=== PATIENT | female | born 1980 | race Caucasian/White ===

== ENCOUNTER 2018-03-07 06:42 | Day surgery (SDC) | END 2018-03-07 17:35 | disposition home or self-care (01) ==

== ENCOUNTER 2018-11-12 08:47 | Day surgery (SDC) | payer OTHER ==
[2018-11-11 09:50] VITALS: Ht 157.5 cm; Wt 56.9 kg
[~2018-11-12] VITALS: Ht 157.5 cm; Wt 56.9 kg
[2018-11-12] VITALS (19 sets, daily range): BP systolic 100–168; BP diastolic 56–98; PULSE 77–112; RESP 16–23
[~2018-11-12 08:47] MED LIST: OMEPRAZOLE PO
--- NOTE | 2018-11-12 12:41 | HPN ---
Date/Time of Note Date/Time of Note DATE: 11/12/18 TIME: 12:41 Interval H&P Admission Note Pt. seen H&P reviewed: No system changes KALI CHAVEZ M.D. Nov 12, 2018 12:41
--- NOTE | 2018-11-12 12:44 | PREAC ---
Date/Time of Note Date/Time of Note DATE: 11/12/18 TIME: 12:43 Anesthesia Eval and Record Evaluation Time Pre-Procedure Interview DATE: 11/12/18 TIME: 12:43 Age 38 Sex female NPO: 8 hrs Preoperative diagnosis nasal obstruction Planned procedure septoplasty and turbinate reduction Past Medical History Past Medical History: None Surgery & Anesthesia Issues No known issue Meds Anticoagulation: No Beta Terrance within 24 hr: No Reason Beta Terrance not given: Pt. not on B-Terrance Discontinued Reported Medications [Omeprazole] No Conflict Check, PO 03/07/18 Meds reviewed: Yes Allergies Coded Allergies: No Known Allergy (Unverified , 03/07/18) Allergies Reviewed: Yes Labs/Studies Labs Reviewed: Reviewed by anesthesiologist test: Negative Pre-procedure Exam Last vitals Vital Signs Date Temp Pulse Resp B/P (MAP) Pulse Ox O2 O2 Flow FiO2 Time Delivery Rate 11/12/18 98.9 77 16 137/88 96 Room Air 09:34 (104) Airway: Adequate mouth opening, Adequate thyromental dist Mallampati: Mallampati II Teeth: Normal Lung: Normal Heart: Normal ASA Physical Status ASA physical status: 1 Emergency: None Planned Anesthetic General/MAC: ETT Pre-operative Attestations Prior to commencing anesthesia and surgery, the patient was re-evaluated, there was verification of: *The patient's identity *The results of appropriate recent lab work and preoperative vital signs *The above evaluation not changing prior to induction *Anesthetic plan, risk benefits, alternative and complications discussed with patient/family; questions answered; patient/family understands, accepts and wishes to proceed. BONNY MOSHER Nov 12, 2018 12:44
[2018-11-12] MEDS ORDERED: FENTAnyl 50 MCG/ML VIAL ONE (12:56)
[2018-11-12] MEDS ORDERED: DIPHENHYDRAMINE 50 MG INJ IV PRN (13:00)
[2018-11-12] MEDS ORDERED: MEPERIDINE 25 MG INJ IV PRN (13:00)
[2018-11-12] MEDS ORDERED: METOCLOPRAMIDE 10 MG INJ IV PRN (13:00)
[2018-11-12] MEDS ORDERED: ALBUTEROL 0.083% (NEB) 2.5 MG/3 ML AMP HHN PRN (13:00)
[2018-11-12] MEDS ORDERED: HYDROmorphONE 1 MG/5 ML IV SYRINGE IV PRN ×3 (13:00)
[2018-11-12] MEDS ORDERED: FENTAnyl 50 MCG/ML VIAL IV PRN ×3 (13:00)
[2018-11-12] MEDS ORDERED: ONDANSETRON 4 MG INJ IV PRN (13:00)
[2018-11-12] MEDS ORDERED: LIDOCAINE 1%/EPI (1:100,000) (MDV) 20 ML ONE (13:04)
[2018-11-12] MEDS ORDERED: COCAINE 4% 4 ML TOP ONE (13:04)
[2018-11-12] MEDS ORDERED: ROCURONIUM 50 MG INJ ONE (13:38)
[2018-11-12] MEDS ORDERED: PROPOFOL 20 ML ONE (13:38)
[2018-11-12] MEDS ORDERED: CEFAZOLIN 1 GM INJ ONE (13:38)
[2018-11-12] MEDS ORDERED: LIDOCAINE 100 MG SYRINGE ONE (13:38)
[2018-11-12] MEDS ORDERED: SUCCINYLCHOLINE CHLORIDE 100 MG/5 ML SYG IV ONE (13:38)
[2018-11-12] MEDS ORDERED: SUGAMMADEX SODIUM 200 MG/2 ML VIAL IV ONE (13:39)
[2018-11-12] MEDS ORDERED: NEOMYC/POLYMYX/BACIT 30 GM OINT ONE (13:43)
--- NOTE | 2018-11-12 14:02 | OPR ---
Date/Time of Note Date/Time of Note DATE: 11/12/18 TIME: 13:58 Operative Report Procedure Date: Nov 12, 2018 Preoperative Diagnosis 1. SEPTAL DEVIATION. 2. BILATERAL NASAL TURBINATE TISSUE HYPERTROPHY. 3. CHRONIC NASAL OBSTRUCTION. Postoperative Diagnosis SAME. Operation/Procedure Performed 1. SEPTOPLASTY VIA [facility]. 2. BILATERAL LASER TURBINOPLASTY KTP 532 NM LASER VIA [facility]. Surgeon see signature line Quality Assurance Supervisor Final NONE. Anesthesia Type: general (WITH OT TUBE INTUBATION. 10 CC LIDOCAINE WITH EPI 1% 1:100,000 SOLN. TOPICAl COCCAINE.) Estimated Blood Loss: 0 - 10 ml's Transfusion none Specimen SEPTAL CARTILAGE AND BONE. Grafts/Implants none Tubes/Drains NONE. Complications none Pt Condition Post Procedure: stable Disposition: PACU Indications TO IMPROVE BREATHING. Procedure Description SEE DICTATED OPERATIVE REPORT. KALI CHAVEZ M.D. Nov 12, 2018 14:02
--- NOTE | 2018-11-12 14:03 | PDOCDIS ---
Discharge Instructions DIAGNOSIS Discharge Diagnosis 1. SEPTAL DEVIATION. 2. BILATERAL NASAL TURBINATE TISSUE HYPERTROPHY. 3. CHRONIC NASAL OBSTRUCTION. CONDITION [id number] Patient Condition: [id number] Good HOME CARE INSTRUCTIONS: [id number] Diet Instructions: Ptioa0q Regular ACTIVITY: [id number] Activity Restrictions: Xuoet2r Slowly Increase Activity Rest between Activity Avoid heavy lifting Avoid Heavy Housework [id number] Bathing Restrictions: [id number] Tub Bath FOLLOW UP/APPOINTMENTS Follow-up Plan MY OFFICE IN 7 TO 10 DAYS. SCHOOL/WORK RELEASE May return to School/Work on: Nov 19, 2018 May return to School/Work with: No Restrictions KALI CHAVEZ M.D. Nov 12, 2018 14:03
--- NOTE | 2018-11-12 14:21 | PAC ---
Date/Time of Note Date/Time of Note DATE: 11/12/18 TIME: 14:21 Post-Anesthesia Notes Post-Anesthesia Note Last documented vital signs Vital Signs Date Temp Pulse Resp B/P (MAP) Pulse Ox O2 O2 Flow FiO2 Time Delivery Rate 11/12/18 99.0 14:09 11/12/18 77 16 137/88 96 Room Air 09:34 (104) Activity: WNL Respiratory function: WNL Cardiovascular function: WNL Mental status: Baseline Pain reasonably controlled: Yes Hydration appropriate: Yes Nausea/Vomiting absent: Yes BONNY MOSHER Nov 12, 2018 14:21
[2018-11-12] MEDS ORDERED: hydrALAzine 20 MG INJ ONE (14:37)
[2018-11-12] MEDS ORDERED: HYDROmorphONE 1 MG/ML SYG ONE (15:41)
--- NOTE | 2018-11-12 15:45 | OPR ---
DATE OF OPERATION: 11/12/2018 SURGEON: Luke Hall MD PREOPERATIVE DIAGNOSES: 1. Septal deviation. 2. Bilateral nasal turbinate tissue hypertrophy. 3. Chronic nasal obstruction. POSTOPERATIVE DIAGNOSES: 1. Septal deviation. 2. Bilateral nasal turbinate tissue hypertrophy. 3. Chronic nasal obstruction. PROCEDURES: 1. Septoplasty using submucosal resection technique. 2. Bilateral laser turbinoplasty procedure using a 532 nanometer KTP laser using a submucosal resect ion technique. ESTIMATED BLOOD LOSS: Less than 10 mL. COMPLICATIONS: None. SPECIMENS SENT TO LABORATORY: Septal cartilage and bone. INDICATIONS: Ms. Harjit Scott is a patient who has a history of chronic nasal obstruction treate d with multiple nasal steroids and decongestant which have met with failure. The patient continues t o have chronic nasal obstruction and is currently considered for bilateral laser turbinoplasty proced ure with septoplasty procedure. The patient understands the risks of infections, bleeding, scar form ation, possible septal perforation as well as possible reaction to general local anesthetic agents. She has signed a consent once her questions were answered. FINDINGS DURING PROCEDURE: Right nasal septal deviation with bilateral enlarged turbinates with radha llomatous degenerative mucosal changes of the nasal cavity. No signs of malignancies or tumors prese nt during the procedure. ANESTHETIC USED: General anesthesia with orotracheal tube intubation. The patient also received kendrick trinidad 4% using 4 mL. The patient also had 10 mL of 1% lidocaine with epinephrine 1:100,000 using a 25 -gauge 1-08/07 needle. The patient was also given IV Ancef before the case was begun. DISPOSITION: The patient left the operating room in good and satisfactory condition. DESCRIPTION OF PROCEDURE: The patient was taken to the operating room, placed on the surgical table in supine position, made comfortable by the anesthesiologist. The patient had EKG, saturation monito r and blood pressure cuff applied. At this point, the patient was then given a mask with inhalation agents, placed asleep gently. The patient had a previously started IV in the preinduction area which was infusing well. The patient was given IV injection and placed under general anesthesia. The pat ient was then orotracheally intubated with orotracheal tube without any complications. The tube was taped to the left part of the mouth and the eyes were taped for protection. At this point, the patie nt's vital signs were noted to be stable as the table was rotated to the midline. It was then unlock ed as the patient was draped out in usual sterile fashion using a split sheet and wet towels around t he nasal cavity. At this point, a brief time-out with patient identification and procedures were ent ertained and all were in agreement. At this point, the left and right inferior turbinates were injec nilay using 25-gauge 1-2 needle with 1% lidocaine with epinephrine 1:100,000. The septum was also in jected on both the left and right sides as well as the region of the nasal spine. Cocaine soaked cot tonoids were then applied to the nasal cavity and the anterior ethmoid behind the middle turbinate ar eas. At this point, the KTP 532 nanometer laser was then made ready at 8 martell continuous power. Al l personnel in the operating room were asked to place safety goggles for their protection. The Astech handheld piece with suction attachment fiber threaded through the handpiece in preparation for la ser use. At this point, the left inferior turbinate was brought in under direct visualization and us ing stabbing technique in a posterior direction in the submucosal space, the laser was activated with foot pedal. The smoke was evacuated through evacuator as the inferior turbinate was noted to shrink on the left side. A nasal speculum was then used to outfracture the inferior turbinate towards the medial wall of the maxillary sinus, giving greater patency of the nasal cavity. At this point, the r ight inferior turbinate was reduced in similar fashion in the submucosal space with a KTP 532 nanomet er laser. At this point, minimal amount of bleeding was removed with a Pantoja suction as the laser portion of the procedure was terminated. At this point, a septoplasty procedure was performed by gael ing a hemitransfixion incision on the left side of the nose with a #[address] stainless st eel blade in the anterior septal margin. This incision was carried down to the underlying cartilage as Corinna elevator was used to elevate mucoperichondrial flap on the left side of the septum. Care w as taken not to tear the flap as the hemitransfixion incision was completed to the right side with ca re not to damage the right mucoperichondrium. The Faulk elevator was then used to elevate the right side of the septum to elevate a mucoperichondrial flap. The deviated inferior aspect of the septum was then removed with Mg forceps removing cartilage and bone. Using a swinging door technique , the posterior edge of the septum was incised with the Faulk elevator. This allowed the septum to swing back towards the midline. The hemitransfixion incision was then closed with 4-0 Vicryl suture in simple interrupted fashion. Plication sutures were also applied to keep the flaps in the midline. At this point, the nasal septum was noted to be in the midline at the end of the procedure. A Fraz ier suction was used to remove blood from the nasal cavity. Bacitracin ointment was then applied to the nose as a packing and mustache dressing was placed beneath the nose to catch any drainage. This ended the procedure. Sponge count and instrument count was correct x3. There were no complications during the procedure. The patient was extubated in the operating room, taken to recovery room where she is currently doing well, expects to be discharged home unless postoperative complications develop . Dictated By: LUKE MAY/GEOVANNA Conf#: [id number] DID#: [id number]
[2018-11-12] MEDS ORDERED: HYDROmorphONE 1 MG/ML SYG IV PRN (16:00)
[2018-11-12] MEDS ORDERED: OXYCODONE/ACETAMINOPHEN (5/325) TAB PO ONE (16:00)
== END 2018-11-12 17:58 | disposition home or self-care (01) ==
LOC: SDS 08:47
PROVIDERS: ATTEND Otolaryngology Otolaryngology/Facial Plastic Surgery
DX: J34.2 Deviated nasal septum (principal); J34.3 Hypertrophy of nasal turbinates
CPT/HCPCS: 30140; 30520; 84703; 88300; J0360; J0690; J1170; J2001; J2405; J3010; Z7512; Z7610